=== PATIENT | female | born 1985 | race Native Hawaiian/Other Pacific Islander ===

== ENCOUNTER 2017-06-14 22:47 | Emergency (ER) | payer OTHER ==
[~2017-06-14] VITALS: Ht 154.9 cm; Wt 82.6 kg
== END 2017-06-15 00:05 | disposition home or self-care (01) ==
LOC: ED 22:47
DX: M70.821 Other soft tissue disorders related to use, overuse and pressure, right upper arm (principal)
CPT/HCPCS: 99281